=== PATIENT | female | born 1960 | race Caucasian/White ===

== ENCOUNTER 2017-11-28 17:49 | Emergency (ER) | payer OTHER ==
[2017-11-28 18:01] VITALS: BP 133/83
--- NOTE | 2017-11-28 18:47 | UC ---
Upper Extremity HPI - HPI Summary HPI Summary: 56 yo female presents with bump to RIGHT clavicle. She tells me that about a month ago she was opening her car door and the top of the car door hit her right clavicle - didn't have any pain or think much of it. Over the next few days she noticed a soft and fluid like bump appear to the area that seemed like it was on the bone - she massaged this and it went away. Over the past 2-3 days the bump has returned. She has been massaging it, but it has not gone away and seems to be tender this time when it was not in the past. Denies fever, chills. 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 Severity Currently: None Pain Intensity: 0 - Allergies/Home Medications Allergies/Adverse Reactions: Allergies Allergy/AdvReac Type Severity Reaction Status Date / Time Penicillins Allergy Rash Verified 11/28/17 18:01 Home Medications: Home Medications NK [No Home Medications Reported] 11/28/17 [History Confirmed 11/28/17] PMH/Surg Hx/FS Hx/Imm Hx - Additional Past Medical History Additional PMH: none - Surgical History Surgical History: Yes Surgery Procedure, Year, and Place: x2 - Family History Known Family History: Positive: Unknown Family History: no cardiovascular issues reported in family lineage - Social History Occupation: Employed Full-time Lives: With Family Alcohol Use: Occasionally Substance Use Type: None Smoking Status (MU): Never Smoked Tobacco Review of Systems Constitutional: Negative Skin: Other - Bump right clavicle Respiratory: Negative Cardiovascular: Negative Neurovascular: Negative Neurological: Negative Psychological: Negative All Other Systems Reviewed And Are Negative: Yes Physical Exam - Summary Physical Exam Summary: GENERAL: NAD. WDWN. No pain distress. SKIN: RIGHT clavicle: at the medial aspect there is a 5mm fluctuant growth on the superior aspect of the bone. Very mild TTP. No erythema, open wound, or drainage. NECK: Supple. Nontender. No lymphadenopathy. CHEST: No accessory muscle use. Breathing comfortably and in no distress. CV: Pulses intact. Cap refill <2seconds MSK: Cervical and right UE FROM without pain. NEURO: Alert. PSYCH: Age appropriate behavior. Triage Information Reviewed: Yes Vital Signs: Initial Vital Signs Temp 98.3 F 11/28/17 17:57 Pulse 68 11/28/17 17:57 Resp 16 11/28/17 17:57 BP 133/83 11/28/17 17:57 Pulse Ox 100 11/28/17 17:57 Vital Signs Reviewed: Yes Upper Extremity Course/Dx - Course Course Of Treatment: Most consistent with a cyst. Pt is very concerned about this and would like it removed or drained - therefore will refer her to Orthopedics for further evaluation. - Differential Dx/Diagnosis Provider Diagnoses: Right clavicle cyst Discharge - Sign-Out/Discharge Documenting (check all that apply): Patient Departure All imaging exams completed and their final reports reviewed: No Studies - Discharge Plan Condition: Stable Disposition: HOME Patient Education Materials: Cyst (ED) Referrals: Michael Dempsey MD [Primary Care Provider] - Ever Terrell MD [Medical Doctor] - As Soon As Possible Additional Instructions: If you develop a fever, shortness of breath, chest pain, new or worsening symptoms - please call your PCP or go to the ED. 1) Please call Orthopedics at the number below to schedule a follow up appointment - Billing Disposition and Condition Condition: STABLE Disposition: Home - Attestation Statements Provider Attestation: I was available for consult. This patient was seen by the [facility]. The patient was not presented to, seen by, or examined by me. -Bertha
--- NOTE | 2017-11-28 20:35 | UC ---
Discharge - Sign-Out/Discharge Documenting (check all that apply): Post-Discharge Follow Up All imaging exams completed and their final reports reviewed: No - Discharge Plan Condition: Stable Disposition: HOME Patient Education Materials: Cyst (ED) Referrals: Ever Terrell MD [Medical Doctor] - As Soon As Possible Michael Dempsey MD [Primary Care Provider] - Additional Instructions: If you develop a fever, shortness of breath, chest pain, new or worsening symptoms - please call your PCP or go to the ED. 1) Please call Orthopedics at the number below to schedule a follow up appointment - Billing Disposition and Condition Condition: STABLE Disposition: Home - Attestation Statements Provider Attestation: I was available for consult. This patient was seen by the [facility]. The patient was not presented to, seen by, or examined by me. -Bertha
--- NOTE | 2017-11-28 21:57 | UC ---
Discharge - Sign-Out/Discharge Documenting (check all that apply): Post-Discharge Follow Up All imaging exams completed and their final reports reviewed: No - Discharge Plan Condition: Stable Disposition: HOME Patient Education Materials: Cyst (ED) Referrals: Ever Terrell MD [Medical Doctor] - As Soon As Possible Michael Dempsey MD [Primary Care Provider] - Additional Instructions: If you develop a fever, shortness of breath, chest pain, new or worsening symptoms - please call your PCP or go to the ED. 1) Please call Orthopedics at the number below to schedule a follow up appointment - Billing Disposition and Condition Condition: STABLE Disposition: Home
--- NOTE | 2017-11-29 07:15 | RAD ---
INDICATION: Right clavicle trauma. TECHNIQUE: 2 views of the right clavicle were obtained. FINDINGS: There is soft tissue swelling present dorsal to the proximal and distal clavicle. The bones are normal alignment. No fracture is seen. Joint spaces appear maintained. IMPRESSION: SOFT TISSUE SWELLING, NO FRACTURE IS SEEN. R0
--- NOTE | 2017-11-29 15:10 | UC ---
- Progress Note Progress Note: OFFICIAL RADIOLOGY READ REVIEWED. SOFT TISSUE SWELLING. FOLLOW-UP ORTHO ADVISED. NO CHANGE IN MGMT. - PANCHO LYONS MD Discharge - Sign-Out/Discharge Documenting (check all that apply): Patient Departure, Post-Discharge Follow Up All imaging exams completed and their final reports reviewed: Yes - Discharge Plan Condition: Stable Disposition: HOME Patient Education Materials: Cyst (ED) Referrals: Ever Terrell MD [Medical Doctor] - As Soon As Possible Michael Dempsey MD [Primary Care Provider] - Additional Instructions: If you develop a fever, shortness of breath, chest pain, new or worsening symptoms - please call your PCP or go to the ED. 1) Please call Orthopedics at the number below to schedule a follow up appointment - Billing Disposition and Condition Condition: STABLE Disposition: Home
== END 2017-11-28 19:37 | disposition home or self-care (01) ==
LOC: UCEAST 17:49
DX: L72.3 Sebaceous cyst (principal); Z88.0 Allergy status to penicillin
CPT/HCPCS: 99211; G0463